=== PATIENT | male | born 1945 | race Caucasian/White ===

== ENCOUNTER 2020-12-19 09:28 | Outpatient (CLI) | payer BC, SELFPAY ==
--- NOTE | ~2020-12-19 | XR_ITS ---
EXAMINATION: XR finger 2nd LT min 2V DATE: 12/19/2020 10:05 INDICATION: Left pointer finger gout. TECHNIQUE: 4 views of left hand second digit were obtained. COMPARISON: Left hand radiographs 04/21/2012 FINDINGS: Bone alignment is normal. No fracture. There are erosions at second distal interphalangeal joint in a marginal and juxta-articular distribution. There is a dorsal osteophyte of distal phalanx. No significant joint space narrowing. There is soft tissue swelling at distal interphalangeal joint with periarticular dystrophic calcifications. IMPRESSION: 1. Arthritis of second distal interphalangeal joint with worsening from 04/21/2012, likely a combinatio n of gout and mild osteoarthritis. Reviewed, dictated and finalized at location A. IMPRESSION: 1. Arthritis of second distal interphalangeal joint with worsening from 3, likely a combination of gout and mild osteoarthritis.
== END 2020-12-19 09:29 | disposition home or self-care (01) ==
PROVIDERS: Visit Provider Plastic Surgery
DX: M10.9 Gout, unspecified (principal); M19.042 Primary osteoarthritis, left hand
CPT/HCPCS: 73140

== ENCOUNTER 2023-07-18 11:29 | Outpatient (CLI) | payer BC, SELFPAY ==
--- NOTE | ~2023-07-18 | XR_ITS ---
EXAM: XR hand BI arthritis min 3V DATE: 07/18/2023 12:07 HISTORY: M10.09 - Idiopathic gout, multiple sites . COMPARISON: 04/21/2012, report only. FINDINGS: Decreased mineralization. No fracture or dislocation. No lytic or blastic lesion. Scattere d arthritic changes typical of osteoarthritis, moderate in the bilateral trapeziometacarpal joints, t humb interphalangeal joints, DIP joints, and triscaphe joints. No erosion or periosteal change. Soft tissues within normal limits. IMPRESSION: Moderate polyarticular osteoarthritis. Reviewed, dictated and finalized at location K.
--- NOTE | ~2023-07-18 | XR_ITS ---
EXAMINATION: XR ankle LT 2V, XR ankle RT 2V, XR foot RT standing 2V, XR foot LT standing 2V DATE: 07/18/2023 12:07 INDICATION: Idiopathic gout at multiple sites TECHNIQUE: 1. Anteroposterior and lateral view of the left ankle were obtained. 2. Dorsoplantar and lateral views of the left foot were obtained. 3. Anteroposterior and lateral view of the right ankle were obtained. 4. Dorsoplantar and lateral views of the right foot were obtained. COMPARISON: None. FINDINGS: There is minimal bilateral pes planus and hindfoot valgus. No fractures. To mild polyarticular osteoa rthritis at multiple joints in the bilateral mid and forefeet. 3 mm thin wire-like metallic foreign b jacob projecting over the soft tissues medial to the left fifth proximal phalanx. Prominent erosion angela alley osteotomy along the head of the left fourth proximal phalanx. Additional erosions versus osteotom ies at the medial and more prominently at the lateral base of the left fourth middle phalanx. Mild hy pertrophic change at the medial head of the right first metatarsal. There is juxta articular erosion at the medial base of the right first proximal phalanx. Symmetric typical pattern of mild polyarticul ar osteoarthritis involving multiple tarsal metatarsal, metatarsophalangeal and interphalangeal joint s. Small bilateral Achilles and plantar calcaneal spurs. The soft tissues are unremarkable. IMPRESSION: 1. Juxta articular erosion at the medial base of the right first proximal phalanx which could be rela fatou to provided history of gout. 2. Possible osteotomies such as 4 hammertoe correction versus large related to gout at both sides of the left fourth proximal interphalangeal joint. Correlate with surgical history. 2. Very small nodular-like metallic foreign body at the left fifth toe. Reviewed, dictated and finalized at location A. IMPRESSION: 1. Juxta articular erosion at the medial base of the right first proximal phala nx which could be related to provided history of gout. 2. Possible osteotomies such as 4 hammertoe correction versus large related to gout at both sides of the left fourth proximal interphalangeal joint. Correlate with surgical history. 2. Very small nodular-like metallic foreign body at the left fifth toe. IMPRESSION: 1. Juxta articular erosion at the medial base of the right first proximal phala nx which could be related to provided history of gout. 2. Possible osteotomies such as 4 hammertoe correction versus large related to gout at both sides of the left fourth proximal interphalangeal joint. Correlate with surgical history. 2. Very small nodular-like metallic foreign body at the left fifth toe. IMPRESSION: 1. Juxta articular erosion at the medial base of the right first proximal phala nx which could be related to provided history of gout. 2. Possible osteotomies such as 4 hammertoe correction versus large related to gout at both sides of the left fourth proximal interphalangeal joint. Correlate with surgical history. 2. Very small nodular-like metallic foreign body at the left fifth toe.
== END 2023-07-18 11:30 | disposition home or self-care (01) ==
PROVIDERS: Visit Provider Internal Medicine
DX: M10.09 Idiopathic gout, multiple sites (principal); Z71.89 Other specified counseling; Z79.899 Other long term (current) drug therapy; M19.041 Primary osteoarthritis, right hand; M19.042 Primary osteoarthritis, left hand
CPT/HCPCS: 73130; 73600; 73620